=== PATIENT | male | born 1975 | race Caucasian/White ===

== ENCOUNTER 2021-02-24 15:35 | Emergency (ER) | payer SELFPAY ==
[2021-02-24 16:24] VITALS: TEMP 98.4; BMI 23.6
[2021-02-24] MEDS ORDERED: CASIRIVIMAB/IMDEVIMAB 10 ML in SODIUM CHLORIDE 100 ML IVPB ONE ×2 (17:40→18:45)
[2021-02-24 18:59] LABS: HEMATOCRIT 42.9 % (35.4-49); HEMOGLOBIN 14.6 GM/dL (11.7-16.9); MCH 29.7 pg (25.7-33.7); MCHC 34.1 g/dl (32.0-35.9); MEAN CELL VOLUME 87.1 fl (80-96); MEAN PLT VOLUME 8.2 fl (7.5-11.1); PLATELET COUNT 242 10^3/uL (134-434); RBC 4.93 M/mm3 (4.00-5.60); RDW 12.6 % (11.9-15.9); WHITE BLOOD COUNT 6.2 K/mm3 (4.0-10.0)
[2021-02-24 19:30] LABS: CALCIUM 8.7 mg/dL (8.5-10.1)
[2021-02-24 19:31] LABS: BLOOD UREA NITROGEN 17.5 mg/dL (7-18)
[2021-02-24 19:34] LABS: CREATININE 0.9 mg/dL (0.55-1.3)
[2021-02-24 21:07] VITALS: BP 108/72; PULSE 79
== END 2021-02-24 21:29 | disposition home or self-care (01) ==
LOC: JER 15:35
PROC: 3E033GC Introduction of Other Therapeutic Substance into Peripheral Vein, Percutaneous Approach (ICD-10-PCS; principal; 2021-02-24)
DX: U07.1 COVID-19 (principal)
CPT/HCPCS: 36415; 80048; 85027; 99284-25; Q0240